=== PATIENT | male | born 1940 | race Caucasian/White ===

== ENCOUNTER → 2018-04-05 06:56 | Outpatient (CLI) | payer BC, SELFPAY ==
[2018-04-05 08:37] LABS: Add Manual Diff / Slide Review NO; Basophils Absolute Auto 0 /uL (0-100); Basophils Percent Auto 0.6 % (0-2); Eosinophils Absolute Auto 200 /uL (0-450); Eosinophils Percent Auto 2.4 % (2-4); Hematocrit 45.7 % (41-53); Hemoglobin 15.4 g/dL (13.5-17.5); Lymphocytes Absolute Auto 2000 /uL (1100-4500); Lymphocytes Percent Auto 30.2 % (25-40); Mean Corpuscular HGB Conc 33.7 % (30-36); Mean Corpuscular Hemoglobin 31.8 PG (26-34); Mean Corpuscular Volume 94.4 fL (80-100); Monocytes Absolute Auto 500 /uL (0-900); Monocytes Percent Auto 7.3 % (3-14); Neutrophils Absolute Auto 3900 /uL (1500-7000); Neutrophils Percent Auto 59.5 % (50-75); Platelet Count 218 X10^3/uL (150-400); Red Blood Cell Count 4.84 X10^6/uL (4.5-5.9); Red Cell Distribution Width 13.2 % (11.6-14.8); White Blood Cell Count 6.5 X10^3/uL (4.5-11.0)
[2018-04-05 08:39] LABS: Hemoglobin A1C% w Est Avg Glu 5.1 % (4.0-6.0)
[2018-04-05 08:49] LABS: Alanine Aminotransferase 36 IU/L (21-72); Albumin 4.4 g/dL (3.5-5.0); Albumin Globulin Ratio 1.6 (1.0-2.8); Alkaline Phosphatase 85 U/L (38-126); Aspartate Aminotransferase 28 IU/L (17-59); BUN Creatinine Ratio 24.4 (6-22); Bilirubin Total 0.5 mg/dL (0.2-1.3); Blood Urea Nitrogen 22 mg/dL (9-20); Calcium 9.1 mg/dL (8.4-10.2); Carbon Dioxide 25 mmol/L (22-32); Chloride 105 mmol/L (98-107); Cholesterol 143 mg/dL (140-199); Estimated Glomerular Filt Rate > 60.0 mL/min (>60); Globulin 2.8 g/dL (1.7-4.1); Glucose 93 mg/dL (80-110); HDL Cholesterol 36 mg/dL (40-60); HEMOLYSIS < 15 (0-50); LDL Cholesterol Calculated 77 mg/dL (<100); Potassium 4.5 mmol/L (3.4-5.1); Sodium 142 mmol/L (137-145); Total Protein 7.2 g/dL (6.3-8.2); Triglycerides 148 mg/dL (35-150)
== END ==
PROVIDERS: PCP Internal Medicine; Visit Provider Internal Medicine
DX: E11.40 Type 2 diabetes mellitus with diabetic neuropathy, unspecified (principal); E78.2 Mixed hyperlipidemia
CPT/HCPCS: 36415; 80053; 80061; 83036; 85025

== ENCOUNTER → 2018-10-22 07:06 | Outpatient (CLI) | payer BC, SELFPAY ==
[2018-10-22 08:43] LABS: Prostate Specific Antigen 2.73 ng/mL (0.10-4.00)
== END ==
PROVIDERS: PCP Internal Medicine; Visit Provider Urology
DX: Z12.5 Encounter for screening for malignant neoplasm of prostate (principal)
CPT/HCPCS: 36415; 84153

== ENCOUNTER → 2019-04-11 06:56 | Outpatient (CLI) | payer OTHER, SELFPAY ==
[2019-04-11 08:24] LABS: Alanine Aminotransferase 30 IU/L (<50); Albumin 4.5 g/dL (3.5-5.0); Albumin Globulin Ratio 1.4 (1.0-2.8); Alkaline Phosphatase 88 U/L (38-126); Aspartate Aminotransferase 30 IU/L (17-59); BUN Creatinine Ratio 28.8 (6-22); Bilirubin Total 0.7 mg/dL (0.2-1.3); Blood Urea Nitrogen 23 mg/dL (9-20); Calcium 9.2 mg/dL (8.4-10.2); Carbon Dioxide 28 mmol/L (22-32); Chloride 104 mmol/L (98-107); Cholesterol 151 mg/dL (140-199); Estimated Glomerular Filt Rate > 60.0 mL/min (>60); Globulin 3.3 g/dL (1.7-4.1); Glucose 103 mg/dL (80-110); HDL Cholesterol 32 mg/dL (40-60); HEMOLYSIS < 15 (0-50); LDL Cholesterol Calculated 92 mg/dL (<100); Potassium 4.2 mmol/L (3.4-5.1); Sodium 142 mmol/L (137-145); Total Protein 7.8 g/dL (6.3-8.2); Triglycerides 135 mg/dL (35-150)
== END ==
PROVIDERS: PCP Internal Medicine; Visit Provider Internal Medicine
DX: E78.2 Mixed hyperlipidemia (principal); E11.40 Type 2 diabetes mellitus with diabetic neuropathy, unspecified
CPT/HCPCS: 36415; 80053; 80061

== ENCOUNTER → 2020-04-16 06:54 | Outpatient (CLI) | payer OTHER, SELFPAY ==
[2020-04-16 08:55] LABS: Alanine Aminotransferase 32 IU/L (<50); Albumin 4.4 g/dL (3.5-5.0); Albumin Globulin Ratio 1.5 (1.0-2.8); Alkaline Phosphatase 87 U/L (38-126); Aspartate Aminotransferase 31 IU/L (17-59); BUN Creatinine Ratio 21.9 (6-22); Bilirubin Total 0.5 mg/dL (0.2-1.3); Blood Urea Nitrogen 16 mg/dL (9-20); Carbon Dioxide 28 mmol/L (22-32); Chloride 106 mmol/L (98-107); Cholesterol 186 mg/dL (140-199); Estimated Glomerular Filt Rate > 60.0 mL/min (>60); Glucose 107 mg/dL (80-110); HDL Cholesterol 34 mg/dL (40-60); HEMOLYSIS < 15 (0-50); LDL Cholesterol Calculated 111 mg/dL (<100); Potassium 4.1 mmol/L (3.4-5.1); Sodium 139 mmol/L (137-145); Total Protein 7.4 g/dL (6.3-8.2); Triglycerides 205 mg/dL (35-150)
== END ==
PROVIDERS: PCP Internal Medicine; Referring Provider Internal Medicine; Visit Provider Internal Medicine
DX: E11.40 Type 2 diabetes mellitus with diabetic neuropathy, unspecified (principal); E78.2 Mixed hyperlipidemia
CPT/HCPCS: 80053; 80061

== ENCOUNTER → 2020-09-03 06:52 | Outpatient (CLI) | payer OTHER, SELFPAY ==
[2020-09-03 08:41] LABS: Cholesterol 136 mg/dL (140-199); HDL Cholesterol 38 mg/dL (40-60); LDL Cholesterol Calculated 66 mg/dL (<100); Triglycerides 161 mg/dL (35-150)
== END ==
PROVIDERS: PCP Internal Medicine; Referring Provider Internal Medicine; Visit Provider Internal Medicine
DX: E78.00 Pure hypercholesterolemia, unspecified (principal)
CPT/HCPCS: 36415; 80061

== ENCOUNTER → 2021-05-13 07:08 | Outpatient (CLI) | payer OTHER, SELFPAY ==
[2021-05-13 08:41] LABS: Prostate Specific Antigen 3.72 ng/mL (0.10-4.00)
== END ==
PROVIDERS: PCP Internal Medicine; Referring Provider Urology; Visit Provider Urology
DX: N40.0 Benign prostatic hyperplasia without lower urinary tract symptoms (principal)
CPT/HCPCS: 36415; 84153

== ENCOUNTER 2021-07-22 08:37 | Emergency (ER) | payer OTHER, SELFPAY ==
[2021-07-22 09:18] VITALS: BP 151/80; PULSE 68; RESP 18; TEMP 36.5; O2SAT 97; BMI 30.5
--- NOTE | 2021-07-22 12:01 | PC.NURSE ---
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 Finished prednisone yesterday ongoing lower back pain and bilateral weakness in lower legs. Walking with a limp in right leg. Denies bladder or bowel complications
--- NOTE | 2021-07-22 12:44 | ED_ITS ---
HPI - Back Pain/Injury <William Forte PA-C - Last Filed: 07/22/21 12:55> General Chief Complaint: Back Pain/Injury Stated Complaint: numbness in both feet this morning, ongoing 14 day Time Seen by Provider: 07/22/21 12:04 Source: patient History of Present Illness HPI Narrative: 81-year-old male with past medical history disc problems presents to the ED with 2 weeks of right-sided lower back pain, with associated bilateral leg numbness. Patient denies any tingling or weakness. Patient denies urinary symptoms including urinary incontinence, urinary hesitancy. Patient denies saddle paresthesias. Patient endorses normal gait. Patient was seen at a OSH and prescribed a course of prednisone that he has completed. Patient patient states that his back pain has improved with the prednisone, however the numbness has not improved. Patient states that he has had prior back issues, has had an MRI which showed disc issues. Patient states that he has had multiple flares of this problem whenever he strains his back. 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 Related Data Home Medications Medication Instructions Recorded Confirmed rosuvastatin 5 mg tablet (Crestor) #0 05/20/16 Previous Rx's Medication Instructions Recorded cyclobenzaprine 5 mg tablet 10 mg PO BEDTIME PRN #20 tab 03/18/19 cyclobenzaprine 10 mg tablet 10 mg PO TID PRN #14 tab 07/22/21 Allergies Allergy/AdvReac Type Severity Reaction Status Date / Time ciprofloxacin [From CIPRO] Allergy Unknown Verified 03/18/19 09:13 amoxicillin AdvReac Verified 03/18/19 09:13 cephalexin AdvReac Verified 03/18/19 09:13 Review of Systems <William Forte PA-C - Last Filed: 07/22/21 12:55> Review of Systems ROS Unobtainable: All systems reviewed & are unremarkable except as noted in HPI and below Constitutional Constitutional: Denies chills, Denies fatigue, Denies fever(s), Denies frequent falls, Denies lethargy and Denies weakness Eyes Eyes: Denies change in vision, Denies eye discharge, Denies irritation and Denies loss of vision ENT Ears, Nose, Mouth, and Throat: Denies change in voice, Denies dizziness, Denies neck pain, Denies sore throat and Denies throat swelling Cardiovascular Cardiovascular: Denies chest pain, Denies irregular heart rhythm, Denies lightheadedness, Denies palpitations, Denies dyspnea, Denies dyspnea on exertion and Denies orthopnea Respiratory Respiratory: Denies cough, Denies dyspnea, Denies dyspnea on exertion and Denies wheezing Gastrointestinal Gastrointestinal: Denies abdominal pain, Denies change in bowel habits, Denies diarrhea, Denies nausea and Denies vomiting Genitourinary Genitourinary: Denies hematuria, Denies flank pain, Denies urinary hesitancy, Denies urinary incontinence and Denies urinary urgency Musculoskeletal Musculoskeletal: Reports back pain, Denies muscle weakness, Denies neck pain, Reports numbness and Denies tingling Comments: Normal gait Integumentary/Breasts Skin/Breast: Denies pruritus, Denies erythema, Denies rash and Denies wounds Neurologic Neurologic: Denies behavioral changes, Denies confusion, Denies dizziness, Denies frequent falls, Denies loss of vision, Reports numbness, Denies tingling and Denies weakness Comments: No saddle paresthesia Psychiatric Psychiatric: Denies anxiety, Denies behavioral changes, Denies confusion, Denies depression, Denies homicidal ideation and Denies suicidal ideation Endocrine Endocrine: Denies fatigue, Denies flushing and Denies palpitations Hematologic/Lymphatic Hematologic/Lymphatic: Denies easy bruising Allergic/Immunologic Allergic/Immunologic: Denies urticaria, Denies throat swelling and Denies wheezing Patient History <William Forte PA-C - Last Filed: 07/22/21 12:55> Social History Smoking Status: Former smoker Smoking Status: Former smoker alcohol intake frequency: holidays/special occasions only Substance Use Type: does not use Exam <William Forte PA-C - Last Filed: 07/22/21 12:55> Initial Vital Signs Initial Vital Signs: Vital Signs Temperature 97.7 F 07/22/21 09:18 Pulse Rate 68 07/22/21 09:18 Respiratory Rate 18 07/22/21 09:18 Blood Pressure 151/80 H 07/22/21 09:18 Pulse Oximetry 97 07/22/21 09:18 Const General: cooperative, healthy appearing and comfortable [facility] Head: normal to inspection Ears: hearing grossly normal bilaterally Eyes General: Yes appearance normal, both eyes and all related structures Resp Effort & Inspection: normal respiratory effort Cardio Rate: regular rate Back/Spine/Pelvis Back: normal to inspection and No back tenderness Other: No midline tenderness to palpation. Full range of motion. Skin General: no rashes or lesions noted Neuro General: patient alert, patient awake and patient oriented x3 Speech: speech normal Gait: normal gait Motor: muscle tone normal throughout, strength 5/5 throughout and no movement abnormalities noted Sensory Exam: no sensory deficits noted Extrem General: normal to inspection, full ROM and capillary refill normal Other: Strength and sensation intact bilaterally. Full range of motion. Neurovascularly intact. Psych Appearance: grossly normal Mental Status: mental status grossly normal Speech and Movement: speech and movement normal <Sirena Huynh DO - Last Filed: 07/24/21 07:22> Initial Vital Signs Initial Vital Signs: Vital Signs Temperature 97.7 F 07/22/21 09:18 Pulse Rate 68 07/22/21 09:18 Respiratory Rate 18 07/22/21 09:18 Blood Pressure 151/80 H 07/22/21 09:18 Pulse Oximetry 97 07/22/21 09:18 Course <William Forte PA-C - Last Filed: 07/22/21 12:55> Vital Signs Vital signs: Vital Signs - 8 hr 07/22/21 09:18 Temperature 97.7 F Pulse Rate 68 Respiratory Rate 18 Blood Pressure 151/80 H Pulse Oximetry 97 <Sirena Huynh DO - Last Filed: 07/24/21 07:22> Vital Signs Vital signs: Vital Signs - 8 hr 07/22/21 09:18 Temperature 97.7 F Pulse Rate 68 Respiratory Rate 18 Blood Pressure 151/80 H Pulse Oximetry 97 MDM - Back Pain/Injury <William Forte PA-C - Last Filed: 07/22/21 12:55> MDM Narrative Medical decision making narrative: 81-year-old male with past medical history disc problems presents to the ED with 2 weeks of right-sided lower back pain, with associated bilateral leg numbness. Physical exam and history is reassuring, no suspicion for a spinal emergency. Patient has had no saddle paresthesias, urinary symptoms, loss of strength. Patient is walking well. Patient's back ache improved with prednisone. Recommend patient trial some muscle relaxants for back spasms. Patient agrees to follow-up with his PCP for physical therapy referral. Patient agrees to follow-up with a ortho specialist if physical therapy is ineffective. ED return precautions were discussed with patient. Patient verbalizes understanding. Discharge Plan Departure Patient Disposition: Home Clinical Impression: Sciatica Instructions: DI for Back Pain With Sciatica Activity Restrictions/Additional Instructions: Sure evaluated in the ED today for lower back pain. Your symptoms are likely due to a bulging disc that is impinging on the nerves that go down her legs. This is consistent with your prior diagnosis of a slipped disc. You may follow- up with your primary care provider for a referral to physical therapy. You have been prescribed a muscle relaxant for lower back spasms. Please return to the ED if you have any symptoms of numbness in the groin region, urinary symptoms, weakness in the legs. Prescriptions: New cyclobenzaprine 10 mg tablet 10 mg PO TID PRN (Reason: muscle spasm) Qty: 14 0RF No Action cyclobenzaprine 5 mg tablet 10 mg PO BEDTIME PRN (Reason: muscle spasm) Qty: 20 0RF rosuvastatin [Crestor] 5 mg tablet Qty: 0 0RF Referrals: Fede Jeronimo MD [Primary Care Provider] - <Sirena Huynh DO - Last Filed: 07/24/21 07:22> Cosign ED Attending Nayan Attestation: I was immediately available in the department for consultation. Documentation has been reviewed. I agree with assessment and plan.
== END 2021-07-22 12:32 | disposition home or self-care (01) ==
PROVIDERS: Emergency Provider Student in an Organized Health Care Education/Training Program; PCP Internal Medicine
DX: M54.42 Lumbago with sciatica, left side (principal); M54.41 Lumbago with sciatica, right side; Z87.891 Personal history of nicotine dependence
CPT/HCPCS: 99281

== ENCOUNTER → 2022-07-01 06:51 | Outpatient (CLI) | payer OTHER, SELFPAY ==
[2022-07-01 09:25] LABS: Prostate Specific Antigen 4.09 ng/mL (0.10-4.00)
== END ==
PROVIDERS: PCP Physician Assistant; Referring Provider Physician Assistant Medical; Visit Provider Physician Assistant Medical
DX: N40.0 Benign prostatic hyperplasia without lower urinary tract symptoms (principal); R35.0 Frequency of micturition; R35.1 Nocturia
CPT/HCPCS: 36415; 84153

== ENCOUNTER → 2022-08-11 06:34 | Outpatient (CLI) | payer OTHER, SELFPAY ==
[2022-08-11 08:35] LABS: Add Manual Diff / Slide Review NO; Basophils Absolute Auto 0 /uL (0-100); Basophils Percent Auto 0.6 % (0-2); Eosinophils Absolute Auto 100 /uL (0-450); Eosinophils Percent Auto 1.4 % (2-4); Hematocrit 42.7 % (41-53); Hemoglobin 14.7 g/dL (13.5-17.5); Lymphocytes Absolute Auto 1600 /uL (1100-4500); Lymphocytes Percent Auto 29.6 % (25-40); Mean Corpuscular HGB Conc 34.3 % (30-36); Mean Corpuscular Hemoglobin 32.1 PG (26-34); Mean Corpuscular Volume 93.5 fL (80-100); Monocytes Absolute Auto 300 /uL (0-900); Monocytes Percent Auto 5.7 % (3-14); Neutrophils Absolute Auto 3400 /uL (1500-7000); Neutrophils Percent Auto 62.7 % (50-75); Platelet Count 174 X10^3/uL (150-400); Red Blood Cell Count 4.57 X10^6/uL (4.5-5.9); Red Cell Distribution Width 13.8 % (11.6-14.8); White Blood Cell Count 5.3 X10^3/uL (4.5-11.0)
[2022-08-11 08:50] LABS: Cholesterol 143 mg/dL (140-199); HDL Cholesterol 38 mg/dL (40-60); LDL Cholesterol Calculated 77 mg/dL (<100); Triglycerides 141 mg/dL (35-150)
[2022-08-12 00:39] LABS: x Labcorp Estim. Avg Glu (eAG) 108 mg/dL (.); x Labcorp Hemoglobin A1c 5.4 % (4.8-5.6)
== END ==
PROVIDERS: PCP Physician Assistant; Referring Provider Internal Medicine Cardiovascular Disease; Visit Provider Internal Medicine Cardiovascular Disease
DX: E78.5 Hyperlipidemia, unspecified (principal); I25.10 Atherosclerotic heart disease of native coronary artery without angina pectoris; Z13.1 Encounter for screening for diabetes mellitus
CPT/HCPCS: 36415; 80061; 83036; 85025

== ENCOUNTER → 2022-09-09 16:09 | Outpatient (CLI) | payer OTHER, SELFPAY ==
--- NOTE | 2022-09-09 16:10 | DI.RAD.S_ITS ---
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 COMPARISON: None. FINDINGS: Bones: No fractures or dislocations. Right worse than left bilateral hip joint osteoarthritic changes are seen. No evidence of avascular necrosis of femoral heads. Pelvic ring appears intact. No suspicious bony lesions. Soft tissues: The visualized bowel gas pattern is normal. No suspicious soft tissue calcifications. 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 No acute pelvic or hip fracture. No evidence of avascular necrosis. Dictated by: Noah Griffiths M.D. on 09/09/2022 at 16:36 Approved by: Noah Griffiths M.D. on 09/09/2022 at 16:37
== END ==
PROVIDERS: PCP Physician Assistant; Referring Provider Student in an Organized Health Care Education/Training Program; Visit Provider Student in an Organized Health Care Education/Training Program
DX: M25.551 Pain in right hip (principal); M16.0 Bilateral primary osteoarthritis of hip
CPT/HCPCS: 73502

== ENCOUNTER → 2023-08-26 06:49 | Outpatient (CLI) | payer OTHER, SELFPAY ==
[2023-08-26 08:39] LABS: Cholesterol 136 mg/dL (140-199); HDL Cholesterol 41 mg/dL (40-60); LDL Cholesterol Calculated 67 mg/dL (<100); Triglycerides 138 mg/dL (35-150)
== END ==
LOC: LAB 06:50
PROVIDERS: PCP Physician Assistant; Referring Provider Nurse Practitioner Acute Care; Visit Provider Nurse Practitioner Acute Care
DX: E78.5 Hyperlipidemia, unspecified (principal); I25.10 Atherosclerotic heart disease of native coronary artery without angina pectoris
CPT/HCPCS: 36415; 80061

== ENCOUNTER → 2023-10-06 06:55 | Outpatient (CLI) | payer OTHER, SELFPAY ==
--- NOTE | 2023-10-06 06:56 | DI.ECHO.S_ITS ---
[place] [facility] : : [address] : : [place] : : [id number] : : Phone: [phone] Echocardiogram Report + + :Name: YANIRA MARTIN Study Date: 10/06/2023 Height: 69 in : :[facility] ReadingLocation: Weight: 200 lb : : Gender: Male BSA: 2.1 m2 : :: 1940 Age: 83 yrs BP: 136/74 mmHg: :Reason For Study: DISORDERS OF ARTERIES AND ARTERIOLS : :Ordering Physician: CINDY, : :MARIA A Performed By: Frank Rowley : :Referring: MARIA A WHITE : + + Interpretation Summary 1) Normal left ventricular thickness, size, wall motion, and systolic function (EF 60-65%). 2) Mildly enlarged right ventricle with normal function. 3) No significant valvular abnormalities. 4) Compared to the Echo done 08/05/2022, no significant change. Procedure: A two-dimensional transthoracic echocardiogram with color flow and Doppler was performed. The study quality was technically adequate. Comparison is made with the echocardiogram of 08/05/2022. The heart rate ranged between 68-92 bpm during the study. Left Ventricle: The left ventricle is normal in size and wall thickness. The ejection fraction is estimated to be 60-65%. Left ventricular systolic function appears normal without focal wall motion abnormalities. Diastolic parameters suggest a relaxation abnormality of the left ventricle, consistent with probable normal filling pressures. Right Ventricle: The right ventricle is mildly dilated. The right ventricular systolic function is normal. Atria: The left atrial size is normal. Right atrial size is normal. The interatrial septum grossly appears intact with no obvious evidence for an atrial septal defect. Mitral Valve: The mitral valve is normal. There is no mitral valve stenosis. There is trace mitral regurgitation. Aortic Valve: The aortic valve is grossly normal. The aortic valve is mildly calcified. There is no aortic valve stenosis. There is trace aortic regurgitation. Tricuspid Valve: The tricuspid valve is normal. There is no tricuspid stenosis. There is trace tricuspid regurgitation. Pulmonary artery pressures cannot be estimated because of the lack of a measurable TR jet velocity. Pulmonic Valve: The pulmonic valve is not well visualized. There is no pulmonic valvular stenosis. There is a trace or physiologic amount of pulmonic regurgitation. Great Vessels: The aortic root is normal size. The ascending aorta is at the upper limits of normal in size. Aorta meaures within normal when age and BSA are taken into account. The inferior vena cava was not visualized. Pericardium/ Pleura There is no pericardial effusion. There is no pleural effusion. MMode/2D Measurements & Calculations LVIDd: 4.6 cm LVOT diam: 2.2 cm LVIDs: 2.9 cm Ao root diam: 3.9 cm FS: 37.2 % asc Aorta Diam: 4.0 cm IVSd: 0.98 cm LVPWd: 1.0 cm LV davidson. diameter/BSA (cm/m^2): 2.2 LV sys. diameter/BSA (cm/m^2): 1.4 LA A2 area: 21.1 cm2 RA long axis: 5.2 cm LA A4 area: 23.5 cm2 RA area: 17.9 cm2 LA length (vol): 6.5 cm RA vol: 52.5 ml LA vol: 65.3 ml RA : 25.4 ml/m2 LA vol index: 31.6 ml/m2 RVD1 (basal): 4.6 cm RVD2 (mid): 3.5 cm TAPSE: 2.5 cm Doppler Measurements & Calculations Ao V2 max: 160.8 cm/sec LVOT Max Jian: 152.2 cm/sec Ao V2 mean: 114.1 cm/sec LV V1 max P.3 mmHg Ao max P.3 mmHg LV V1 VTI: 31.7 cm Ao mean P.8 mmHg OUMAR(I,D): 3.9 cm2 Ao V2 VTI: 29.5 cm OUMAR(V,D): 3.5 cm2 sev ratio: 1.1 OUMAR indexed to BSA (cm^2/m^2): 1.9 MV E max jian: 70.1 cm/sec TR max jian: 238.3 cm/sec MV A max jian: 88.6 cm/sec TR max P.7 mmHg MV E/A: 0.79 PA V2 max: 102.5 cm/sec Med Peak E' Jian: 5.2 cm/sec PA V2 mean: 66.1 cm/sec E/E' med: 13.5 PA mean P.1 mmHg Lat Peak E' Jian: 5.5 cm/sec PA pr(Accel): 31.0 mmHg E/E' lat: 12.9 E/e' average: 13.2 MV dec time: 0.24 sec SV(LVOT): 116.0 ml Reading Physician:09:10 AM
== END ==
LOC: ECHO 06:56
PROVIDERS: PCP Physician Assistant; Referring Provider Nurse Practitioner Acute Care; Visit Provider Nurse Practitioner Acute Care
DX: I77.89 Other specified disorders of arteries and arterioles (principal)
CPT/HCPCS: 93306

== ENCOUNTER 2023-12-22 11:03 | Emergency (ER) | payer OTHER, SELFPAY ==
[2023-12-22 11:07] VITALS: BP 163/77; PULSE 77; RESP 16; TEMP 36.3; O2SAT 99; BMI 29.5
--- NOTE | 2023-12-22 12:14 | ED_ITS ---
HPI - Male Genitourinary <Danette Saldivar PA-C - Last Filed: 12/22/23 14:45> General Chief complaint: Urogenital-Male Stated complaint: Lower Groin pain Time Seen by Provider: 12/22/23 12:13 Source: patient Mode of arrival: Ambulatory History of Present Illness HPI Narrative: 83-year-old male presents with left groin pain that has been intermittent for the last month. He reports increased pain with walking, he is denying any injury, no urinary symptoms and no penile symptoms, he is denying any scrotal swelling. He states he was seen at [facility] for a urine test only, in anticipation of a urology appointment tomorrow, and it was ?normal? those notes are unavailable to me, but he states he canceled it because ?the pain is so severe.? No imaging was performed. History review is significant for sciatica in 2021, right hip x-ray status post fall in August of 2022 x-rays revealed osteoarthritis only, and some type of right testicular surgery years ago per the patient, apparently had an epididymal cyst. He states about a week ago he was shooting a basketball and did not really experience any pain, he states he sleeps okay with no disruption at bedtime no pain when he wakes in the morning, no issues with his bowel movements his last 1 was today, no constipation. No changes in color such as dark or black stools. He reports no history of diverticulitis. He states he has had groin pulls in the past and this does not feel similar. He points to the left inguinal region along the pubic fat pad, pain is worse with standing, no issues lying down, worse with walking and movement. All other systems are reviewed and are negative. Related Data Home Medications Medication Instructions Recorded Confirmed rosuvastatin 5 mg tablet (Crestor) ##0 05/20/16 Previous Rx's Medication Instructions Recorded cyclobenzaprine 5 mg tablet 10 mg (2 x 5 mg) PO BEDTIME PRN 03/18/19 muscle spasm #20 tabs cyclobenzaprine 10 mg tablet 10 mg PO TID PRN muscle spasm #14 07/22/21 tabs Allergies Allergy/AdvReac Type Severity Reaction Status Date / Time ciprofloxacin [From CIPRO] Allergy Unknown Verified 03/18/19 09:13 amoxicillin AdvReac Verified 03/18/19 09:13 cephalexin AdvReac Verified 03/18/19 09:13 Review of Systems <Danette Saldivar PA-C - Last Filed: 12/22/23 14:45> Review of Systems Narrative: All other systems reviewed and are negative. Patient History <Danette Saldivar PA-C - Last Filed: 12/22/23 14:45> Social History Smoking Status: Former smoker Smoking Status: Former smoker alcohol intake frequency: holidays/special occasions only Substance Use Type: does not use Exam <Danette Saldivar PA-C - Last Filed: 12/22/23 14:45> Initial Vital Signs Initial Vital Signs: Vital Signs Temperature 97.4 F L 12/22/23 11:07 Pulse Rate 77 12/22/23 11:07 Respiratory Rate 16 12/22/23 11:07 Blood Pressure 163/77 H 12/22/23 11:07 Pulse Oximetry 99 12/22/23 11:07 Oxygen Delivery Method Room Air 12/22/23 11:07 Vital signs reviewed and are normal except for elevated systolic reading. Const Other: Smiling, seated, no distress. Resp Auscultation: clear to auscultation bilaterally Cardio Rate: regular rate Rhythm: regular rhythm GI Inspection: normal to inspection, no abdominal wall ecchymosis, no edema, non- distended, obesity, no striae and no visible herniation Palpation: soft, no hepatosplenomegaly, No guarding and No ascites Percussion: normal to percussion Auscultation: normal bowel sounds Other: Right inguinal canal is without pain or hernia, left inguinal external ring, significant pain with Valsalva, no appreciable visible or palpable mass however. External: normal external exam, circumcised, no ecchymosis, no edema, no erythema, hernia, no inguinal lymphadenopathy and tenderness (Left inguinal tenderness with Valsalva) Penis: normal penis Scrotum: scrotum normal, cremasteric reflex present, no masses and no scrotal swelling Back/Spine/Pelvis Other: No CVA tenderness. Skin Other: Normal color, turgor, temperature. Extrem Other: Ambulates somewhat gingerly preferring the contralateral side, he does have full weightbear however. Active range of motion of the hip he has reproducible pain with hip flexion, abduction is normal, external rotation causes slight discomfort, severe pain with knee flexion in the standing position involving the left groin. <Kurt Carvajal DO - Last Filed: 12/22/23 15:01> Initial Vital Signs Initial Vital Signs: Vital Signs Temperature 97.4 F L 12/22/23 11:07 Pulse Rate 77 12/22/23 11:07 Respiratory Rate 16 12/22/23 11:07 Blood Pressure 163/77 H 12/22/23 11:07 Pulse Oximetry 99 12/22/23 11:07 Oxygen Delivery Method Room Air 12/22/23 11:07 Course <Danette Saldivar PA-C - Last Filed: 12/22/23 14:45> Course Course Narrative: Resting comfortably in a reclining chair, discussed his CT findings, advised that I discussed this case with the ED attending, at this point I believe his pain is musculoskeletal, he does endorse resolution with ibuprofen at home, no disruption during sleep, no worrisome findings on CT scan. He agrees to follow up with his PCP. Orders Ordered: ED Orders 12/22/23 12:51 CT abdomen pelvis w con Stat 12/22/23 13:02 Urinalysis and Microscopic Stat Consultations Consultation #1: Discussed the case with ED attending Dr. Carvajal, who agrees with my discharge plan, I believe this is musculoskeletal this point there were no worrisome findings on CT scan he has normal vital signs, he will follow up with his PCP. Vital Signs Vital signs: Vital Signs - 8 hr 12/22/23 11:07 12/22/23 14:25 Temperature 97.4 F L Pulse Rate 77 70 Respiratory Rate 16 18 Blood Pressure 163/77 H 147/70 H Pulse Oximetry 99 97 Oxygen Delivery Method Room Air Room Air <Kurt Carvajal DO - Last Filed: 12/22/23 15:01> Orders Ordered: ED Orders 12/22/23 12:51 CT abdomen pelvis w con Stat 12/22/23 13:02 Urinalysis and Microscopic Stat Vital Signs Vital signs: Vital Signs - 8 hr 12/22/23 11:07 12/22/23 14:25 Temperature 97.4 F L Pulse Rate 77 70 Respiratory Rate 16 18 Blood Pressure 163/77 H 147/70 H Pulse Oximetry 99 97 Oxygen Delivery Method Room Air Room Air MDM - Male Genitourinary <Danette Saldivar PA-C - Last Filed: 12/22/23 14:45> Lab Data Lab results narrative: Urinalysis is normal. Labs: Lab Results 12/22/23 Range/Units 13:02 Urine Color Yellow Urine Appearance Clear Urine pH 5.5 (4.5-8.0) Ur Specific [place] 1.010 (1.000-1.035) Urine Protein Negative (Negative) Urine Glucose (UA) Negative (Negative) g/dL Urine Ketones Negative (NEGATIVE) Urine Occult Blood Negative (Negative) Urine Nitrate Negative (Negative) Urine Bilirubin Negative (NEGATIVE) Urine Urobilinogen 0.2 (0.2) E.U./dL Ur Leukocyte Esterase Negative (NEGATIVE) Urine RBC None seen (0-5/HPF) Urine WBC None seen (0-5/HPF) Ur Squamous Epith Cells None seen (0-5/HPF) Urine Bacteria None seen (None) Ur Culture Indicated? Cult not indicated Vol Urine Centrifuged 10ml (spun) Imaging Data CT scan - abdomen/pelvis: My Impression: Deferred to radiologist's interpretation below. Radiologist's Impression: PROCEDURE: CT ABDOMEN PELVIS W CON INDICATIONS: left inguinal pain x 1 mo. r/o left inguinal hernia TECHNIQUE: After the administration of intravenous contrast, axial sections acquired from the lung bases to the pubic symphysis. Coronal and sagittal reformats were performed. For radiation dose reduction, the following was used: automated exposure control, adjustment of mA and/or kV according to patient size. COMPARISON: None. FINDINGS: Image quality: Diagnostic. Lower Chest: Moderate LAD calcifications for age. ABDOMEN: Liver: No solid mass. Gallbladder: No radiopaque gallstones or wall thickening. Biliary ducts: No biliary dilation. Pancreas: No ductal dilation. Spleen: Size is within normal limits. Adrenal Glands: No adrenal nodules. Kidneys and Ureters: No hydronephrosis. No solid mass. No complex renal cystic lesion which requires follow up. Stomach and Bowel: Normal colonic caliber, without significant wall thickening. Colonic diverticulosis without evidence of diverticulitis. Appendectomy. Fecal debris within the small bowel. Peritoneum: No abnormal intraperitoneal fluid. No free air. Ventral Wall: Small umbilical hernia containing fat. Abdominal Nodes: No retroperitoneal or mesenteric adenopathy by size criteria. Vessels: Aorta and inferior vena cava are normal in size. PELVIS: Pelvic Organs: Unremarkable. Bladder: No bladder wall thickening, accounting for underdistention. Pelvic Nodes: No enlarged lymph nodes. Miscellaneous: No inguinal hernias are seen. Bones: No aggressive osseous abnormality. IMPRESSION: No findings to explain the patient's left groin pain. No recurrent inguinal hernia. Colonic diverticulosis without evidence of diverticulitis. Fecal debris within the small-bowel, usually indicating small intestinal bacterial overgrowth versus slow transit. Dictated by: Adam Godoy M.D. on 12/22/2023 at 14:01 Approved by: Aadm Godoy M.D. on 12/22/2023 at 14:07 [facility] Narrative Medical decision making narrative: No worrisome findings on CT scan, his pain resolves with ibuprofen at home, he has no disruption during sleep. No urinary symptoms and normal urine. He is normal vital signs. 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 Again he agrees with this plan and will see his primary, red flag warning signs were reviewed in great detail, if he has any worsening symptoms, any new worrisome symptoms, swelling, develops a fever or has any abdominal pain please do not hesitate to come back to the emergency department. Keep her activity light no sports or high intensity activities at this point. <Kurt Carvajal, DO - Last Filed: 12/22/23 15:01> Lab Data Labs: Lab Results 12/22/23 Range/Units 13:02 Urine Color Yellow Urine Appearance Clear Urine pH 5.5 (4.5-8.0) Ur Specific [place] 1.010 (1.000-1.035) Urine Protein Negative (Negative) Urine Glucose (UA) Negative (Negative) g/dL Urine Ketones Negative (NEGATIVE) Urine Occult Blood Negative (Negative) Urine Nitrate Negative (Negative) Urine Bilirubin Negative (NEGATIVE) Urine Urobilinogen 0.2 (0.2) E.U./dL Ur Leukocyte Esterase Negative (NEGATIVE) Urine RBC None seen (0-5/HPF) Urine WBC None seen (0-5/HPF) Ur Squamous Epith Cells None seen (0-5/HPF) Urine Bacteria None seen (None) Ur Culture Indicated? Cult not indicated Vol Urine Centrifuged 10ml (spun) MDM Narrative Medical decision making narrative: No worrisome findings on CT scan, his pain resolves with ibuprofen at home, he has no disruption during sleep. No urinary symptoms and normal urine. He is normal vital signs. 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 Again he agrees with this plan and will see his primary, red flag warning signs were reviewed in great detail, if he has any worsening symptoms, any new worrisome symptoms, swelling, develops a fever or has any abdominal pain please do not hesitate to come back to the emergency department. Keep her activity light no sports or high intensity activities at this point. Dr. Carvajal: I was immediately available in the department for consultation. Documentation has been reviewed. I agree with assessment and plan. Discharge Plan Departure Patient Disposition: Home Clinical Impression: Left groin pain Instructions: DI for Groin Strain Activity Restrictions/Additional Instructions: Your CT scan today showed no evidence of any hernia, your urine test was normal. Your vital signs are normal. The fact that your pain does not interrupt her sleep is a good sign, the fact that it improves with ibuprofen at home is also a good sign, I believe this might be musculoskeletal although it can be referred pain from your bones, your x-rays last year did show osteoarthritis of both of your hips. I would like you to follow up with your primary care provider, I would also like you to try ice, or heat in the area, avoid any high intensity activities, no running, and of course if any of your symptoms persist or worsen or you have any new worrisome symptoms please do not hesitate to return to the her emergency department or call 911. Please remember to take your ibuprofen with food. Prescriptions: No Action cyclobenzaprine 5 mg tablet 10 mg PO BEDTIME PRN (Reason: muscle spasm) Qty: 20 0RF rosuvastatin [Crestor] 5 mg tablet Qty: 0 cyclobenzaprine 10 mg tablet 10 mg PO TID PRN (Reason: muscle spasm) Qty: 14 0RF Referrals: Marilin Dahl PA-C [Primary Care Provider] - Stand Alone Forms: Patient Portal/API
--- NOTE | 2023-12-22 12:51 | DI.CT.S_ITS ---
PROCEDURE: CT ABDOMEN PELVIS W CON INDICATIONS: left inguinal pain x 1 mo. r/o left inguinal hernia TECHNIQUE: After the administration of intravenous contrast, axial sections acquired from the lung bases to the pubic symphysis. Coronal and sagittal reformats were performed. For radiation dose reduction, the following was used: automated exposure control, adjustment of mA and/or kV according to patient size. COMPARISON: None. FINDINGS: Image quality: Diagnostic. Lower Chest: Moderate LAD calcifications for age. ABDOMEN: Liver: No solid mass. Gallbladder: No radiopaque gallstones or wall thickening. Biliary ducts: No biliary dilation. Pancreas: No ductal dilation. Spleen: Size is within normal limits. Adrenal Glands: No adrenal nodules. Kidneys and Ureters: No hydronephrosis. No solid mass. No complex renal cystic lesion which requires follow up. Stomach and Bowel: Normal colonic caliber, without significant wall thickening. Colonic diverticulosis without evidence of diverticulitis. Appendectomy. Fecal debris within the small bowel. Peritoneum: No abnormal intraperitoneal fluid. No free air. Ventral Wall: Small umbilical hernia containing fat. Abdominal Nodes: No retroperitoneal or mesenteric adenopathy by size criteria. Vessels: Aorta and inferior vena cava are normal in size. PELVIS: Pelvic Organs: Unremarkable. Bladder: No bladder wall thickening, accounting for underdistention. Pelvic Nodes: No enlarged lymph nodes. Miscellaneous: No inguinal hernias are seen. Bones: No aggressive osseous abnormality. IMPRESSION: No findings to explain the patient's left groin pain. No recurrent inguinal hernia. Colonic diverticulosis without evidence of diverticulitis. Fecal debris within the small-bowel, usually indicating small intestinal bacterial overgrowth versus slow transit. Dictated by: Adam Godoy M.D. on 12/22/2023 at 14:01 Approved by: Adam Godoy M.D. on 12/22/2023 at 14:07
[2023-12-22 13:29] LABS: Appearance Urine UA CLEAR; Bilirubin Urine UA NEGATIVE (NEGATIVE); Color Urine UA YELLOW; Glucose Urine UA NEGATIVE (Negative); Ketones Urine UA NEGATIVE (NEGATIVE); Leukocyte Esterase Urine UA NEGATIVE (NEGATIVE); Nitrite Urine UA NEGATIVE (Negative); Occult Blood Urine UA NEGATIVE (Negative); Protein Urine UA NEGATIVE (Negative); Urobilinogen Urine UA 0.2 E.U./dL (0.2); pH Urine UA 5.5 (4.5-8.0)
[2023-12-22 13:38] LABS: Bacteria Urine None Seen; Culture Indicated Urine Cult Not Indicated; RBC Urine None Seen (0-5/HPF); Squamous Epithelial Cell Urine None Seen (0-5/HPF); Urine Volume 10mL (spun); WBC Urine None Seen (0-5/HPF)
[2023-12-22 14:25] VITALS: BP 147/70; PULSE 70; RESP 18; O2SAT 97
== END 2023-12-22 14:46 | disposition home or self-care (01) ==
PROVIDERS: Emergency Provider Physician Assistant Medical; PCP Physician Assistant
DX: R10.32 Left lower quadrant pain (principal)
CPT/HCPCS: 74177; 81001; 99283; 99284; Q9967